=== PATIENT | male | born 1965 | race African-American/Black ===

== ENCOUNTER 2019-04-09 19:39 | Emergency (ER) | payer MEDICAID, OTHER ==
[~2019-04-09] VITALS: Ht 172.7 cm; Wt 61.2 kg
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
[2019-04-09 20:30] VITALS: BP 138/83
[2019-04-09] MEDS ORDERED: Methocarbamol 750mg tab ORAL ONE (20:30)
[2019-04-09] MEDS ORDERED: Acetaminophen 500mg (ES) tab ORAL ONE (20:30)
[2019-04-09] MEDS ORDERED: ROBAXIN-750750 MG PO (21:40)
[2019-04-09] MEDS ORDERED: TYLENOL EXTRA500 MG ORAL (21:40)
[2019-04-09] MEDS ORDERED: LIDODERM700 M1 TOPIC (21:40)
[2019-04-09 21:55] VITALS: BP 138/83
--- NOTE | 2019-04-09 21:55 | NUR ---
ER Nurse Note: All orders completed per ERMD orders. Pt seen, treated, medically cleared for discharge by ERMD. Discharge instructions and prescriptions given with repeat verbazliaion by pt. Instructed pt to follow up with primary care provider within one week. Pt a&ox4, VSS, no signs of distress. ID band removed. Pt left with all belongings with steady gait via own transportation.
--- NOTE | 2019-04-10 09:34 | Diagnostic Imaging Report ---
Indication: Neck pain. Technique: Continuous helical imaging of the cervical spine was obtained transaxially from the skull base to the upper thoracic spine. 2-D coronal and sagittal reformatted images were obtained. Automatic Exposure Control was utilized. Total Dose length Product (DLP): 1638.[address] Dose Index Volume (CTDIvol): 70.38,13.06 mGy Comparison: None Findings: In the prevertebral region there is a mild degree of soft tissue swelling and low attenuation. Consider MRI for further evaluation. There is no acute fracture identified or malalignment concerning for acute injury. 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 There is narrowing of the C5-6 disc which is mild and moderate narrowing at C6-7 with endplate osteophyte formation. Impression: Prevertebral/retropharyngeal soft tissue swelling. Please correlate clinically. Soft tissue injury such as ligamentous injury is possible. Clinical correlation is needed. MRI may be helpful for further evaluation. No acute bony injury Mild spondylosis [facility] has communicated the preliminary results to the Emergency Department. Their findings are largely concordant with this report. The CT scanner at [facility] is accredited by the [employer] and the scans are performed using dose optimization techniques as appropriate to a performed exam including Automatic Exposure control.
--- NOTE | 2019-04-10 10:24 | Diagnostic Imaging Report ---
Indication: Headache Technique: Contiguous 5 mm thick transaxial imaging of the head obtained in a Siemens Sensation [address] scanner. Soft tissue and bone windows generated. Automatic Exposure Control was utilized. Total Dose length Product (DLP): 1638.[address] Dose Index Volume (CTDIvol): 70.38,13.06 mGy Comparison: none Findings: There is mild prominence of the ventricles, basal cisterns, and cerebral sulci consistent with atrophy. Mild, nonspecific, white matter hypoattenuation is noted throughout the brain consistent with chronic small vessel disease. There is no midline shift, edema, acute hemorrhage, mass effect, or abnormal extra-axial fluid collections. Bones and extra osseous soft tissues are unremarkable. Impression: No acute intracranial bleed, mass effect or edema. Mild atrophy of the brain. Nonspecific white matter hypoattenuation probably due to chronic small vessel disease. [facility] has communicated the preliminary results to the Emergency Department. Their findings are largely concordant with this report. The CT scanner at [facility] is accredited by the [employer] and the scans are performed using dose optimization techniques as appropriate to a performed exam including Automatic Exposure control.
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
== END 2019-04-09 21:55 | disposition home or self-care (01) ==
LOC: EMR 20:11
DX: M54.2 Cervicalgia (principal); R51 Headache; V09.9XXA Pedestrian injured in unspecified transport accident, initial encounter; Y92.9 Unspecified place or not applicable; Z88.6 Allergy status to analgesic agent
CPT/HCPCS: 70450; 72125; 99284